=== PATIENT | male | born 1970 | race Caucasian/White ===

== ENCOUNTER 2020-08-18 07:39 | Outpatient (CLI) | payer BC, SELFPAY ==
[2020-08-21 03:38] LABS: Patient Race White; SARS-CoV-2 RNA Undetected (Undetected); SARS-CoV-2 Specimen Source Nasopharynx
== END 2020-08-18 07:59 ==
PROVIDERS: PCP Family Medicine; Visit Provider Family Medicine
DX: Z11.59 Encounter for screening for other viral diseases (principal)
CPT/HCPCS: U0003

== ENCOUNTER 2020-10-31 04:12 | Outpatient (CLI) | payer BC, SELFPAY ==
[2020-10-31 13:03] LABS: Calculated LDL 164 mg/dL (<100); Cholesterol 240 mg/dL (<200); Glucose 84 mg/dL (74-106); HDL Cholesterol 66 mg/dL (40-60); Triglyceride 51 mg/dL (<150)
[2020-10-31 18:00] LABS: PSA, Screening 0.7 ng/mL (0.0-3.5)
== END 2020-10-31 04:32 ==
PROVIDERS: PCP Family Medicine; Visit Provider Family Medicine
DX: E78.5 Hyperlipidemia, unspecified (principal); R73.9 Hyperglycemia, unspecified; Z12.5 Encounter for screening for malignant neoplasm of prostate; Z00.00 Encounter for general adult medical examination without abnormal findings
CPT/HCPCS: 36415; 80061; 82947; 84153

== ENCOUNTER 2022-09-16 06:57 | Day surgery (SDC) | payer BC, SELFPAY ==
--- NOTE | 2022-09-16 06:31 | W.COLOREPORT ---
Date of service: 09/16/22 Time of Service: 08:12 Colonoscopy Report Date of procedure: 09/16/22 Pre-op diagnosis general: Colon Cancer Screening Post-op diagnosis procedure note: other (polyps and mild diverticulosis) Procedure: Colonoscopy with polypectomy Surgeon: Orquidea Mcclendon Anesthesia Type: General:No Airway Estimated blood loss (mL): 3 Pathology: other (ascending polyp, descending polyp x3 and rectal polyp) Complications: None Disposition: same day Indications: The patient? is a pleasant? 52-year-old male who is here to discuss his first screening colonoscopy. ? He denies any changes in bowel habits, melena, hematochezia, unintentional weight loss or family history of colon cancer.? The procedure and risks were discussed.? The prep was reviewed in detail.? Risks, benefits and complications have been reviewed. Complications include but are not limited to bleeding, pain, perforation, missed small lesion/polyp, sore throat, aspiration and adverse reaction to the medications. Questions were entertained and answered to their satisfaction and they wished to proceed. No guarantees were given or implied. Prep: Miralax/Dulcolax Procedure Start Time: 08:12 Procedure End Time: 08:41 Retraction Time: 20 minutes Findings: 5 small polyps mild sigmoid diverticulosis Procedure Description: After informed consent was obtained the patient was taken to the procedure room and placed in a left decubitous position. Monitors were applied and a time out was done. The patients name, date of , procedure, allergies to medications and metal in their body was reviewed. The patient was then sedated. Once sedated and comfortable a rectal exam was done. External exam was normal. Internal exam revealed a normal sphincter tone and no palpable masses. The prostate felt smooth. The scope was then introduced and retro-flexed. No internal hemorrhoids, polyps or masses were identified on retro-flexion. The scope was then advanced to the cecum without difficulty. The ileocecal vlave and appendiceal orifice were identified. The prep was good. The scope was then slowly retracted over 20 minutes back into the rectum. Polyps were removed with cold snare in the ascending colon, descending colon x2 and rectum and with forceps in the descending colon. There was mild sigmoid diverticulosis noted. The scope was removed and the patient was woken up and taken back to Same day surgery in stable condition. The patient tolerated the procedure well and there were no immediate complications.
--- NOTE | 2022-09-16 06:32 | W.PM.DSUDISC ---
Date of service: 09/16/22 Time of Service: 08:51 Discharge Plan Disposition Patient Disposition: HOME Condition: Good Discharge Details Reason For Visit: colonoscopy Attending Provider: Orquidea Mcclendon Primary Care Provider: Tad Lebron Home Meds and New Rx's Prescriptions: Continued losartan 25 mg tablet 25 mg PO DAILY Qty: 30 2RF ibuprofen 200 MG tablet 200 mg PO Q6H PRN Discontinued polyethylene glycol 3350 17 gram/dose powder 238 g PO ONCE Qty: 238 0RF Rx Instructions: take per colonoscopy instructions bisacodyl [Dulcolax (bisacodyl)] 5 mg tablet,delayed release (DR/EC) 5 mg PO ONCE Qty: 4 0RF Rx Instructions: take per colonoscopy instructions Discharge Instructions Instructions: Colorectal Polyps (DC), Diverticulosis (DC) Additional Instructions: Findings: 5 polyps and mild diverticulosis Follow up: 3-5 years Please call if you develop: fevers >101.5 Nausea or Vomiting Abdominal pain that is not transient Rectal bleeding that is more then a tbsp A hard abdomen and inability to pass gas DAY SURGERY UNIT POST ENDOSCOPY INSTRUCTIONS Instructions for everyone who is given Anesthesia: For your safety, please do the following for the next 24 Hours: a. Do not drive or operate dangerous equipment b. Do not drink alcohol beverages or use any recreational drugs for the first 24 hours or while taking pain medications. The medications in your body may have a reaction that can be dangerous. c. Do not make any important decisions or sign any important papers 1. Generally there are no restrictions on your activity after a day or so has gone by, but you may feel a bit fatigued for a few days. 2. After you arrive home you may have a light meal and return to a normal diet as you can tolerate it without feeling sick to your stomach. 3. After surgery, you may feel pain or discomfort. This should be only transient, but if it persists please contact your doctor. 4. If there are any questions regarding the findings of your procedure, please feel free to contact your doctor. 6. If you are unable to contact your doctor with a problem, contact the hospital at [phone]. 7. Continue all your regular medications unless directed otherwise. I understand the above instructions and have no questions. Signature of Patient or Responsible Adult Escort Date/Time Name of Responsible Adult Escort Signature of Nurse Date/Time Activity:: Activity as Tolerated Diet:: high fiber diet Discharge Orders Discharge Orders: Discharge Order (Routine); Ordered 09/16/22 Ordered By: Orquidea Mcclendon
[2022-09-16 07:20] VITALS: BP 144/96; PULSE 79; RESP 16; TEMP 36.6; O2SAT 98
[2022-09-16] MEDS: Lactated Ringers 1,000 ML 80 ML IV (07:30)
--- NOTE | 2022-09-16 07:41 | W.ANESPRE ---
General Info Date of Service Date Performed: 09/16/22 Height: 5 ft 9 in Weight: 83.2 kg Body Mass Index (BMI): 27.1 Surgical Procedure: Operation Date: 09/16/22 08:20 Proposed Procedure Side Surgeon p Colonoscopy Orquidea Mcclendon MD Meds Allergies and Home Medications Allergies Allergy/AdvReac Type Severity Reaction Status Date / Time No Known Allergies Allergy Verified 09/16/22 07:18 Home Medication Medication Instructions Recorded ibuprofen 200 mg tablet 200 mg PO Q6H PRN 05/15/16 losartan 25 mg tablet 25 mg PO DAILY #30 tabs 04/24/22 bisacodyl 5 mg tablet,delayed 5 mg PO ONCE colonscopy bowel prep 09/03/22 release (Dulcolax (bisacodyl)) #4 tabs polyethylene glycol 3350 17 238 g PO ONCE colonoscopy prep 09/03/22 gram/dose oral powder #238 grams Current Visit Medications: Current Medications Generic Name Dose Route Start Last Admin Trade Name Freq PRN Reason Stop Dose Admin Hyoscyamine Sulfate 0.125 mg 09/16/22 06:32 Hyoscyamine 0.125 Mg Sl/Oral/Chew SL DIRECTED PRN Ringer's Solution 1,000 mls @ 80 mls/hr 09/16/22 06:00 09/16/22 07:30 IV 10/13/22 23:59 80 mls/hr INFUSION GRETA Administration IV Miscellaneous Supplies 1 each 09/16/22 06:00 Iv Access IV 10/13/22 23:59 DIRECTED GRETA Ondansetron HCl 4 mg 09/16/22 06:32 Ondansetron 4 Mg/2 Ml Vial IVP Q4H PRN PRN Nausea / Vomiting Sodium Chloride 0 ml 09/16/22 06:00 Normal Saline Flush 10 Ml Syr IV 10/13/22 23:59 PRN PRN Sodium Chloride 0 ml 09/16/22 06:00 Normal Saline 10 Ml Vial IJ 10/13/22 23:59 DIRECTED PRN Sterile Water 0 ml 09/16/22 06:00 Water,Injection,Sterile 10 Ml Vial IJ 10/13/22 23:59 DIRECTED PRN PFSH Active Problems Active Problems: Problem Status Onset Code Well adult Screening for colon cancer Z12.11 Bilateral impacted cerumen H61.23 Essential hypertension I10 Medical History Medical History (Updated 09/16/22 @ 07:19 by Nubia Joshi) Fracture of left ankle (06/03/11) HTN (hypertension) Seborrheic keratoses (09/29/14) LEFT FOREARM Surgical History Surgical History ANKLE SURGERY 05/2011; [facility] [place] Tobacco Smoking/Tobacco Use Status: Former Tobacco Use Smokeless tobacco user: chewing tobacco Passive smoking exposure: Yes Second hand exposure: Yes Alcohol Alcohol Intake: current Alcohol intake frequency: a few times a week Alcohol type: beer Substance Use Substance use: Never Substance use type: does not use Vital Signs and Lab Results Vital Signs Most Recent Vital Signs in EMR: Most Recent Vital Signs Temp Pulse Resp BP Pulse Ox 36.6 C 79 16 144/96 H 98 09/16/22 07:20 09/16/22 07:20 09/16/22 07:20 09/16/22 07:20 09/16/22 07:20 Lab Results Blood Type / Crossmatch: No Data to Display Complete Blood Count: No Data to Display Complete Metabolic Panel: No Data to Display Liver Function Panel: No Data to Display Coagulation Panel: No Data to Display Cardiac Panel: No Data to Display Arterial Blood Gas: No Data to Display Venous Blood Gas: No Data to Display Pancreas Panel: No Data to Display Thyroid Panel: No Data to Display Infectious Disease: No Data to Display Blood Cultures: No Data to Display Toxicology Panel: No Data to Display Anesthesia Assessment and Plan Anesthesia History Personal History: No History of Anesthesia Complications Family History: No Family History of Anesthesia Complications Exercise Tolerance Exercise Tolerance: Unknown Pertinent Negatives Pertinent Negatives: No Major Cardiovascular Symptoms or Complaints, No Major Pulmonary Symptoms or Complaints and No History of CVA/TIA Cardiac & Pulmonary Exam Cardiac Exam: Normal S1/S2 Heart Sounds Pulmonary Exam: Clear Bilateral Breath Sounds Implantable Cardiac Device Does patient have a Pacemaker or an ICD?: No Airway Exam Known Difficult Airway: No Mallampati Class: 1 Mouth Opening: Normal (> 3cm) Thyromental Distance: Greater than 3 cm Neck Range of Motion: Full ROM Neck Circumference: Normal Teeth Condition: Normal Dentition ASA Classification ASA Score: ASA 2 Emergency Case?: No NPO Status NPO Status: NPO Clears >2 hours, Solids >8 hours Anesthesia Plan Resuscitation Status: Full Code Anesthesia Technique: General Anesthesia Airway Planned: Natural Airway Monitors Used: Standard Monitors
[2022-09-16 07:59] VITALS: BMI 27.1
--- NOTE | 2022-09-16 08:23 | BOWEL_PTH ---
PATIENT: Ramos Corado LOC: [facility] U#:[id number] AGE/SX: 52/M ROOM: RE09/16/[address]: Orquidea Mcclendon MD : 1970 BED: DIS: 09/16/2022 SPEC #: [id number] RECD: 09/16/22 12:25 STATUS: ELLA RE #: [id number] BRI: 09/16/22 08:[address]: Orquidea Mcclendon DEPT: Surgical Specimen RECD BY: Vanda Morales ENTERED: 09/16/22 12:28 SP TYPE: Bowel OTHR DR: Tad Lebron MD Tissues: 1 - BIOPSY BOWEL 2 - BIOPSY BOWEL 3 - BIOPSY BOWEL Procedures: GROSS AND MICRO LEVEL 4 Comments: [id number]
[2022-09-16 08:46] VITALS: BP 125/85; PULSE 83; RESP 18; TEMP 36.5; O2SAT 95
[2022-09-16] MEDS: Hyoscyamine 0.125 MG SL/ORAL/CHEW SL (09:00)
[2022-09-16 09:06] VITALS: BP 137/99; PULSE 79; RESP 18; TEMP 36.6; O2SAT 99
[2022-09-16] MEDS: Ondansetron O.D.T. 4 MG TABEF PO (09:33)
--- NOTE | 2022-09-16 09:59 | W.ANESPOSTOP ---
Postoperative Evaluation Date, Time and Location Date Performed: 09/16/22 Time Performed: 09:40 Patient Location: Day Surgery Unit Vital Signs Most Recent Imported Vital Signs: Most Recent Vital Signs Temp Pulse Resp BP Pulse Ox 36.6 C 79 18 137/99 H 99 09/16/22 09:06 09/16/22 09:06 09/16/22 09:06 09/16/22 09:06 09/16/22 09:06 Pain Score Most Recent Pain Score: Most Recent Pain Score Pain Level 3 09/16/22 09:06 Assessment Mental Status: Awake (Alert & Oriented to Patient Baseline) Airway and Respiratory Function: Patent airway with normal (patient baseline) respiratory exam Cardiovascular Function: Hemodynamically Stable Hydration Status: Adequately Hydrated Nausea & Vomiting: No Nausea or Vomiting Pain: Pain is tolerable per patient Peripheral Nerve Block: Patient did not receive a nerve block
== END 2022-09-16 09:42 | disposition home or self-care (01) ==
PROVIDERS: PCP Family Medicine; Visit Provider Surgery
PROC: 0DJD8ZZ Inspection of Lower Intestinal Tract, Via Natural or Artificial Opening Endoscopic (ICD-10-PCS; CPT 45378; principal; 2022-09-16 08:15)
DX: Z12.11 Encounter for screening for malignant neoplasm of colon (principal); K63.5 Polyp of colon; K62.1 Rectal polyp; K57.30 Diverticulosis of large intestine without perforation or abscess without bleeding
CPT/HCPCS: 45380; 88305; J3490

== ENCOUNTER 2022-10-31 01:45 | Outpatient (CLI) | payer BC, SELFPAY ==
[2022-10-31 12:33] LABS: Anion Gap 7.5 mmol/L (3-11); BUN 17 mg/dL (7-18); CO2 30.5 mmol/L (21.0-32.0); CREATININE 0.9 mg/dL (0.70-1.30); Calcium 9.4 mg/dL (8.5-10.1); Calculated LDL 160 mg/dL (<100); Chloride 103 mmol/L (98-107); Cholesterol 244 mg/dL (<200); Estimated GFR 102.76 (mL/min/1.73m2); Glucose 88 mg/dL (74-106); HDL Cholesterol 63 mg/dL (40-60); Sodium 141 mmol/L (136-145); Triglyceride 105 mg/dL (<150)
[2022-10-31 21:07] LABS: PSA, Screening 0.9 ng/mL (<=3.5)
[2022-11-01 09:31] LABS: Hepatitis C Ab w Rflx HCV PCR Negative (Negative)
== END 2022-10-31 01:46 | disposition home or self-care (01) ==
LOC: LOS 01:45
PROVIDERS: PCP Family Medicine; Visit Provider Family Medicine
DX: Z12.5 Encounter for screening for malignant neoplasm of prostate (principal); E78.5 Hyperlipidemia, unspecified; E87.1 Hypo-osmolality and hyponatremia; Z11.59 Encounter for screening for other viral diseases
CPT/HCPCS: 36415; 80048; 80061; 84153; 86803

== ENCOUNTER 2023-03-10 02:23 | Outpatient (CLI) | payer BC, SELFPAY ==
[2023-03-10 12:33] LABS: ALT 32 U/L (16-63); AST 17 U/L (15-37); LDL CHOLESTEROL 131 mg/dL (<100)
== END 2023-03-10 02:24 | disposition home or self-care (01) ==
LOC: LOS 02:23
PROVIDERS: PCP Family Medicine; Visit Provider Family Medicine
DX: E78.5 Hyperlipidemia, unspecified (principal); K76.0 Fatty (change of) liver, not elsewhere classified
CPT/HCPCS: 36415; 83721; 84450; 84460

== ENCOUNTER 2023-11-12 08:52 | Outpatient (CLI) | payer BC, SELFPAY ==
[2023-11-12 12:33] LABS: CREATININE 0.9 mg/dL (0.70-1.30); Estimated GFR 102.12 (mL/min/1.73m2); Potassium 4.3 mmol/L (3.5-5.1)
== END 2023-11-12 08:53 | disposition home or self-care (01) ==
LOC: LOS 08:52
PROVIDERS: PCP Family Medicine; Referring Provider Family Medicine; Visit Provider Family Medicine
DX: I10 Essential (primary) hypertension (principal)
CPT/HCPCS: 36415; 82565; 84132